=== PATIENT | female | born 1960 | race African-American/Black ===

== ENCOUNTER 2020-04-06 06:36 | Emergency (ER) | payer OTHER, MEDICAID ==
[~2020-04-06] VITALS: Ht 170.2 cm; Wt 65.8 kg
[2020-04-06 06:36] VITALS: BP_SYST 114
--- NOTE | 2020-04-06 06:36 | NUR ---
Patient kelbya from [facility] rehab to bed 6 for evaluation
--- NOTE | 2020-04-06 07:01 | NUR ---
ER Dr. Campo at bedside examining patient.
--- NOTE | 2020-04-06 07:10 | NUR ---
Patient BIB BLS from [facility] re[facility] for [facility]. Patient A&Ox2, verbal & cooperative, skin pink & flakey. Per EMS patient sent for medical clearance for [facility] admission. Pt has HX anemia, bipolar and encephalopathy.
[2020-04-06 07:26] LABS: BASOPHILS % (AUTO) 0.6 % (0.0-2.0); EOSINOPHILS # (AUTO) 0.1 K/uL (0.0-0.4); EOSINOPHILS % (AUTO) 3.2 % (0.0-4.0); HEMATOCRIT 24.5 % (36-48); HEMOGLOBIN 8.2 g/dL (12.0-16.0); LYMPHOCYTES # (AUTO) 1.3 K/uL (1.0-5.5); LYMPHOCYTES % (AUTO) 33.3 % (20.5-51.5); MEAN CORPUSCULAR HEMOGLOBIN 29 pg (27-31); MEAN CORPUSCULAR HGB CONC 33 % (32-36); MEAN CORPUSCULAR VOLUME 88 fL (79.0-98.0); MONOCYTES # (AUTO) 0.4 K/uL (0.0-1.0); MONOCYTES % (AUTO) 10.8 % (1.7-9.3); NEUTROPHILS # (AUTO) 2.1 K/uL (1.8-7.7); NEUTROPHILS % (AUTO) 52.1 % (40.0-70.0); PLATELET COUNT (AUTO) 312 K/uL (130-430); RED CELL DISTRIBUTION WIDTH 15.7 % (9.0-15.0)
[2020-04-06 07:41] LABS: CALCIUM 9.1 mg/dL (8.4-11.0); CHLORIDE 103 mmol/L (98-107); CREATININE 2.18 mg/dL (0.55-1.30); GLUCOSE 87 mg/dL (70-99); UREA NITROGEN, BLOOD 21 mg/dL (8-21)
[2020-04-06 07:45] LABS: ALANINE AMINOTRANSFERASE 16 U/L (12-78); ALBUMIN 2.9 g/dL (3.4-4.8); ALCOHOL, BLOOD 4 mg/dL (<10); ASPARTATE AMINOTRANSFERASE 21 U/L (10-37); CHOLESTEROL 159 mg/dL (<200); HDL CHOLESTEROL 93 mg/dL (>55); LDL CHOLESTEROL 48 mg/dL (<100); TOTAL BILIRUBIN 0.3 mg/dL (0.0-1.0); TRIGLYCERIDES 57 mg/dL (30-150)
[2020-04-06 07:49] LABS: ANION GAP 8 (5-15); GFR AFRICAN AMERICAN 30 mL/min (>90); SODIUM SERUM 138 mmol/L (136-145)
[2020-04-06 08:01] LABS: ACETAMINOPHEN < 1 ug/mL (1-30)
[2020-04-06 08:11] LABS: BILIRUBIN,URINE NEGATIVE (NEGATIVE); BLOOD, URINE NEGATIVE (NEGATIVE); CLARITY/URINE CLEAR (CLEAR); COLOR,URINE YELLOW (YELLOW); GLUCOSE,URINE NEGATIVE (NEGATIVE); KETONES,URINE TRACE (NEGATIVE); LEUKOCYTE ESTERASE ,URINE NEGATIVE (NEGATIVE); NITRITE, URINE NEGATIVE (NEGATIVE); PH,URINE 5.5 (5.0-8.0); PROTEIN URINE NEGATIVE (NEGATIVE); UROBILINOGEN,URINE 0.2 (0.2-1.0)
[2020-04-06 08:13] LABS: BARBITURATE, URINE NEGATIVE (NEG <=200); BENZODIAZEPINE, URINE POSITIVE (NEG <=150); CANNABINOID, URINE NEGATIVE (NEG <=50); COCAINE, URINE NEGATIVE (NEG <=150); METHAMPHETAMINES SCREEN,URINE NEGATIVE (NEG <=500); OPIATE, URINE NEGATIVE (NEG <=100); PHENCYCLIDINE SCREEN,URINE NEGATIVE (NEG <=25); UR TRICYCLIC ANTIDEPRESSANTS POSITIVE (NEG <=300); URINE AMPHETAMINE NEGATIVE (NEG <=500); URINE METHADONE NEGATIVE (NEG <=200); URINE OXYCODONE SCREEN NEGATIVE (NEG <=100); URINE PROPOXYPHENE SCREEN NEGATIVE (NEG <=300)
--- NOTE | 2020-04-06 10:27 | NUR ---
Patient given written and verbal discharge instructions and verbalizes understanding. ER MD discussed with patient the results and treatment provided. Patient in stable condition. ID arm band removed. NO Rx given. Patient educated on pain management and to follow up with PMD. Pain Scale 0/10 . Opportunity for questions provided and answered. Medication side effect fact sheet provided.
[2020-04-06 10:28] VITALS: BP_SYST 109
--- NOTE | 2020-04-06 10:29 | NUR ---
Report called to [facility], given to Chana Charge Nurse, ETA 20 MIN
== END 2020-04-06 10:29 | disposition home or self-care (01) ==
LOC: SED 06:36
DX: G81.94 Hemiplegia, unspecified affecting left nondominant side (principal); R45.6 Violent behavior; G40.909 Epilepsy, unspecified, not intractable, without status epilepticus; E11.9 Type 2 diabetes mellitus without complications; I10 Essential (primary) hypertension; F41.9 Anxiety disorder, unspecified; E78.5 Hyperlipidemia, unspecified; F20.9 Schizophrenia, unspecified; J45.909 Unspecified asthma, uncomplicated; F32.9 Major depressive disorder, single episode, unspecified; Z79.899 Other long term (current) drug therapy; Z79.82 Long term (current) use of aspirin; Z20.828 Contact with and (suspected) exposure to other viral communicable diseases
CPT/HCPCS: 36415; 80053; 80061; 80307; 81003; 83036; 83880; 84484; 85025; 87081; 87426; 93005; 99284; C9803; G0480; G0481; G0482; U0003

== ENCOUNTER 2020-04-14 18:23 | Inpatient (IN) | payer OTHER, SELFPAY ==
[~2020-04-14] VITALS: Ht 165.1 cm; Wt 63.0 kg
[2020-04-14 18:35] VITALS: BP_SYST 105
--- NOTE | 2020-04-14 18:40 | NUR ---
Patient to ER bed 7 to gown for evaluation. Side rails up. Report given to shanthi ERWIN.
--- NOTE | 2020-04-14 19:07 | NUR ---
Pt came to ER for falls/syncope/agitation pt unable to respond verablly to commands, no distress noted, pt resting in gurney comfortably, VSS.
--- NOTE | 2020-04-14 19:10 | NUR ---
ER at bedside examining patient.
[2020-04-14] MEDS ORDERED: HYDROcodone/ACETAMIN 5-325 MG TAB (NORCO/ VICODIN) PO PRN (19:15)
[2020-04-14] MEDS ORDERED: DOCUSATE SODIUM 100 MG CAPSULE PO PRN (19:15)
[2020-04-14] MEDS ORDERED: ACETAMINOPHEN 325 MG TABLET PO PRN (19:15)
[2020-04-14] MEDS ORDERED: ONDANSETRON HCL 4 MG/2 ML VIAL IVP PRN (19:15)
[2020-04-14] MEDS ORDERED: LORazepam 2 MG/ML VIAL IM ONE (19:15)
[2020-04-14] MEDS ORDERED: INSULIN LISPRO SLIDING SCALE 100 UNITS/ML VIAL (humaLOG) SUBCUT PRN (19:45)
[2020-04-14] MEDS ORDERED: LORazepam 2 MG/ML VIAL ONE (19:50)
[2020-04-14 19:57] LABS: BASOPHILS % (AUTO) 0.7 % (0.0-2.0); EOSINOPHILS # (AUTO) 0.1 K/uL (0.0-0.4); EOSINOPHILS % (AUTO) 2.1 % (0.0-4.0); HEMOGLOBIN 7.2 g/dL (12.0-16.0); LYMPHOCYTES # (AUTO) 0.9 K/uL (1.0-5.5); LYMPHOCYTES % (AUTO) 20.8 % (20.5-51.5); MEAN CORPUSCULAR HEMOGLOBIN 29 pg (27-31); MEAN CORPUSCULAR HGB CONC 33 % (32-36); MEAN CORPUSCULAR VOLUME 90 fL (79.0-98.0); MONOCYTES # (AUTO) 0.5 K/uL (0.0-1.0); MONOCYTES % (AUTO) 11.2 % (1.7-9.3); NEUTROPHILS # (AUTO) 2.9 K/uL (1.8-7.7); NEUTROPHILS % (AUTO) 65.2 % (40.0-70.0); PLATELET COUNT (AUTO) 400 K/uL (130-430); RED BLOOD CELL COUNT(AUTO) 2.45 MIL/uL (4.2-6.2); RED CELL DISTRIBUTION WIDTH 16.6 % (9.0-15.0); WHITE BLOOD COUNT (AUTO) 4.4 K/uL (4.8-10.8)
--- NOTE | 2020-04-14 20:00 | NUR ---
VSS, PT TO CT SCAN WELL TOLERATED
[2020-04-14 20:02] LABS: CALCIUM 8.8 mg/dL (8.4-11.0); CREATININE 2.37 mg/dL (0.55-1.30); POTASSIUM 4.3 mmol/L (3.5-5.1)
[2020-04-14 20:17] LABS: ALBUMIN 3.1 g/dL (3.4-4.8); FREE T4 (FREE THYROXINE) 0.9 ng/dl (0.8-1.5); PHOSPHORUS 4.1 mg/dL (2.7-4.5); THYROID STIMULATING HORMONE 0.08 uIu/mL (0.36-3.74); TOTAL BILIRUBIN 0.2 mg/dL (0.0-1.0)
[2020-04-14] MEDS ORDERED: DEXTROSE 37.5 GM GEL..GRAM. PO PRN (20:30)
--- NOTE | 2020-04-14 20:40 | NUR ---
Floor aware new lab results on Renal function and Chronically Low H/H
--- NOTE | 2020-04-14 20:43 | NUR ---
Patient will be admitted to care of Dr. García. Admitted to Tele unit. Will go to room 104. Belongings list completed. Complete and up to date summary report printed. SBAR report to be given at bedside with opportunity for questions.
--- NOTE | 2020-04-14 20:43 | NUR ---
Transfer to Tele via ACLS protocol. Licensed nurse present. IV present no signs or symptoms of infiltration.
--- NOTE | 2020-04-14 20:43 | NUR ---
ADMIT NOTE Received pt from ER to the floor with a diagnosis of syncope. Admission process initiated. patient oriented to pain management, safety and call light-teach back done.
--- NOTE | 2020-04-14 20:45 | NUR ---
ROUNDS PATIENT IN BED, SLEEPING, ARROUSABLE TO NAME, VITALS STABLE, NO SIGNS OF ANY PAIN NOTED. ADMISSION ASSESSMENT DONE AND DOCUMENTED. SEE FLOWSHEET. NEEDS ATTENDED TO. SAFETY AND SEIZURE PRECAUTIONS IN PLACED. NEEDS ATTENDED TO. CALL LIGHT PLACED WITHIN REACH.
[2020-04-14 20:50] LABS: CKMB RELATIVE INDEX 2.5 (0.0-2.9)
[2020-04-14 20:57] VITALS: BP_SYST 105
[2020-04-14] MEDS: NACL 0.9% 1,000 ML IV SCH (21:34)
[2020-04-15] VITALS: BP_SYST 122
--- NOTE | 2020-04-15 00:14 | NUR ---
PATIENT RESTING: Patient resting quietly. No acute distress noted. Vital signs within normal range.
--- NOTE | 2020-04-15 02:16 | NUR ---
ROUNDS PATIENT ASLEEP, RESPIRATIONS EVEN AND UNLABORED, WILL CONTINUE TO MONITOR.
--- NOTE | 2020-04-15 04:13 | NUR ---
ROUNDS PATIENT SLEEPING, NO SOB NOR PAIN AND DISCOMFORT NOTED, WILL CONTINUE TO MONITOR.
--- NOTE | 2020-04-15 04:47 | NUR ---
CONSULT REASON FOR CONSULT: ANEMIA PERSON I SPOKE WITH: IVET CONSULTING PHYSICIAN: DR. DA SILVA (DR. CAZARES BUSINESS SPECIALIST) SPRAY DRIER OPERATOR HELPER PHONE NUMBER: [phone] ORDERING PHYSICIAN: DR. GUTIERREZ
--- NOTE | 2020-04-15 04:49 | NUR ---
CONSULT REASON FOR CONSULT: BEHAVIORAL ISSUES PERSON I SPOKE WITH: ELSY CONSULTING PHYSICIAN: DR. MOSES SCHOOL STANDARDS COACH PHONE NUMBER: [phone] ORDERING PHYSICIAN: DR. GUTIERREZ
--- NOTE | 2020-04-15 04:51 | NUR ---
CONSULT REASON FOR CONSULT: SOLOMON PERSON I SPOKE WITH: ELSY CONSULTING PHYSICIAN: DR. CAVAZOS (DR. ROBERTSON ENTERTAINMENT PRODUCTION PROFESSIONAL) RUBBER BALL FINISHER PHONE NUMBER: [phone] ORDERING PHYSICIAN: DR. GUTIERREZ
[2020-04-15] MEDS: NACL 0.9% 1,000 ML IV SCH (06:34)
--- NOTE | 2020-04-15 06:50 | NUR ---
CLOSING NOTES PATIENT STILL SLEEPING, ACCU CHECK DONE WITH BLOOD SUGAR OF 108, NO INSULIN COVERAGE. ALL NEEDS ATTENDED TO. SAFETY MEASURES MAINTAINED. CALL LIGHT PLACED WITHIN REACH.
[2020-04-15 07:09] LABS: BASOPHILS % (AUTO) 0.4 % (0.0-2.0); EOSINOPHILS # (AUTO) 0.1 K/uL (0.0-0.4); EOSINOPHILS % (AUTO) 1.1 % (0.0-4.0); HEMATOCRIT 22.5 % (36-48); HEMOGLOBIN 7.3 g/dL (12.0-16.0); LYMPHOCYTES # (AUTO) 0.8 K/uL (1.0-5.5); LYMPHOCYTES % (AUTO) 16.3 % (20.5-51.5); MEAN CORPUSCULAR HEMOGLOBIN 30 pg (27-31); MEAN CORPUSCULAR HGB CONC 33 % (32-36); MEAN CORPUSCULAR VOLUME 91 fL (79.0-98.0); MONOCYTES # (AUTO) 0.5 K/uL (0.0-1.0); MONOCYTES % (AUTO) 10.1 % (1.7-9.3); NEUTROPHILS # (AUTO) 3.6 K/uL (1.8-7.7); NEUTROPHILS % (AUTO) 72.1 % (40.0-70.0); PLATELET COUNT (AUTO) 391 K/uL (130-430); RED BLOOD CELL COUNT(AUTO) 2.48 MIL/uL (4.2-6.2); RED CELL DISTRIBUTION WIDTH 16.6 % (9.0-15.0)
[2020-04-15 07:22] LABS: CALCIUM 8.7 mg/dL (8.4-11.0); CREATININE 1.89 mg/dL (0.55-1.30); PHOSPHORUS 4.3 mg/dL (2.7-4.5); POTASSIUM 4.4 mmol/L (3.5-5.1)
[2020-04-15] MEDS ORDERED: DRON5CAP26 PO (07:24)
[2020-04-15] MEDS ORDERED: RIFA550T5 PO (07:24)
[2020-04-15] MEDS ORDERED: LOSA100T3 PO (07:24)
[2020-04-15] MEDS ORDERED: LEVE500T53 PO (07:24)
[2020-04-15] MEDS ORDERED: DOCU-144 PO (07:24)
[2020-04-15] MEDS ORDERED: DIVA-74 PO (07:24)
[2020-04-15] MEDS ORDERED: ASPI-1393 PO (07:24)
[2020-04-15] MEDS ORDERED: AMLO10TA88 PO (07:24)
[2020-04-15 07:30] VITALS: BP_SYST 121
--- NOTE | 2020-04-15 07:50 | NUR ---
AM NOTES PT IN BED. PT IS WEARING CUSHION HELMET. AROUSABLE TO VERBAL STIMULI.VITALS STABLE . NOT IN ACUTE DISTRESS. RES EVENA ND UNLABORED. IVF INFUSING WELL. IV SITE L WRIST #22 PATENT. NO S/ SOF INFITRATION NOTED. SAFETY/ FALL /SEIZURES PRECAUTION IN PLACE. PADDED SIDE RAILS.KEPT COMFORTABLE. WILL CONTINUE WITH PLAN OF CARE.
[2020-04-15] MEDS ORDERED: ACET-2634 PO (08:43)
[2020-04-15] MEDS ORDERED: LORA-258 PO (08:43)
[2020-04-15] MEDS ORDERED: BENZ1LOZ58 PO (08:43)
[2020-04-15] MEDS ORDERED: MOM PO (08:43)
[2020-04-15] MEDS ORDERED: BENZ0.5T43 PO (08:43)
[2020-04-15] MEDS ORDERED: GUAI-1196 PO (08:43)
[2020-04-15] MEDS ORDERED: HYDR-4039 PO (08:43)
[2020-04-15] MEDS ORDERED: LAMO200T2 PO (08:43)
[2020-04-15] MEDS ORDERED: FERR-69 PO (08:43)
[2020-04-15] MEDS ORDERED: ACET325T53 PO (08:43)
[2020-04-15] MEDS ORDERED: IPRA4AER INH (08:43)
[2020-04-15] MEDS ORDERED: LIP40 PO (08:43)
[2020-04-15] MEDS ORDERED: LACT10SO6 PO (08:43)
[2020-04-15] MEDS ORDERED: QUET50TA PO (08:43)
[2020-04-15] MEDS ORDERED: TRAM100T28 PO (08:43)
--- NOTE | 2020-04-15 09:09 | NUR ---
Nutrition Update Jerome Scale 15 noted. Pt admitted for syncope. Diet: [facility] BMI: 23.1 kg/m2 RD to follow per nutrition care standards.
[2020-04-15] MEDS ORDERED: IPRATROPIUM/ALBUTEROL SULFATE 3 ML AMPUL.NEB (DUONEB) INH PRN (09:15)
[2020-04-15] MEDS ORDERED: RIFAXIMIN 550 MG TABLET PO ONE (09:15)
[2020-04-15] MEDS ORDERED: ASPIRIN 81 MG TABLET(ECOTRIN) PO ONE (09:15)
[2020-04-15] MEDS ORDERED: levETIRAcetam 500 MG TABLET PO ONE (09:15)
[2020-04-15] MEDS ORDERED: MILK OF MAGNESIA 30 ML UDC PO PRN (09:15)
[2020-04-15] MEDS ORDERED: FERROUS SULFATE 325 MG TABLET.DR PO ONE (09:15)
[2020-04-15] MEDS ORDERED: guaiFENesin/DEXTROMETHORPHAN 10 ML UDC PO PRN (09:15)
[2020-04-15] MEDS ORDERED: DIVALPROEX SODIUM 500 MG TABLET( DEPAKOTE) PO ONE (09:15)
[2020-04-15] MEDS ORDERED: LamoTRIgine 100 MG TABLET PO ONE (09:15)
[2020-04-15] MEDS ORDERED: hydrALAZINE HCL 25 MG TABLET PO ONE (09:15)
[2020-04-15] MEDS ORDERED: BENZTROPINE MESYLATE 1 MG TABLET PO ONE (09:15)
[2020-04-15] MEDS ORDERED: QUEtiapine FUMARATE 25 MG TABLET PO ONE (09:15)
[2020-04-15] MEDS ORDERED: LOSARTAN POTASSIUM 50 MG TABLET (COZAAR) PO ONE (09:15)
[2020-04-15] MEDS ORDERED: traMADol HCL HCL 50 MG TABLET (ULTRAM) PO PRN (09:15)
[2020-04-15] MEDS ORDERED: DOCUSATE SODIUM 100 MG CAPSULE PO ONE (09:15)
[2020-04-15] MEDS ORDERED: BENZOCAINE/MENTHOL 1 EACH LOZENGE PO PRN (09:15)
[2020-04-15] MEDS ORDERED: amLODIPine BESYLATE 10 MG TABLET PO ONE (09:15)
--- NOTE | 2020-04-15 09:30 | NUR ---
CONSULTATION: REASON FOR CONSULT: SEIZURE DISORDER CONSULTING PHYSICIAN: BEVERLY BROWN MD ORDERED BY: SONDRA GUTIERREZ MD SPOKE WITH [facility] [phone]
[2020-04-15] MEDS ORDERED: LACTULOSE 20 GM/30 ML UDC PO ONE (10:00)
--- NOTE | 2020-04-15 10:00 | NUR ---
meds pt is drowsy unable to give am meds. swallow eval pending . dr fontenot here notified.will continue to monitor
[2020-04-15 10:37] LABS: LACTATE DEHYDROGENASE 288 U/L (81-234); VALPROIC ACID 64 ug/mL (50-100)
[2020-04-15 10:39] LABS: C-REACTIVE PROTEIN QUANT < 0.2 mg/dL (0-0.5)
--- NOTE | 2020-04-15 11:05 | NUR ---
SWALLOW EVALUATION: LEFT MSG WITH LALA
[2020-04-15 12:00] VITALS: BP_SYST 126
--- NOTE | 2020-04-15 12:15 | NUR ---
IV INSERTION LEFT WRIST IV INFILTRATED. IVLINE REMOVED. CLEAN DRESSING APPLIED. NEW IV LINE STARTED RT HAND #22. WITH GOOD BLOOD RETURN.. FLUSHED WELL. NO S/S INFILTRATION NOTED.PT TOLERATED WELL. BLOOD SUGAR 84. NO S/S OF HYPOGLYCEMIA NOTED.VITALS STABLE NOTIN ACUTE DISTRESS. WILL CONTINUE TO MONITOR
[2020-04-15] MEDS ORDERED: D5/0.45 NS 1,000 ML IV SCH ×6 (12:25)
[2020-04-15] MEDS: D5/0.45 NS 1,000 ML IV SCH (12:39)
[2020-04-15 13:04] LABS: TOTAL IRON BIND. CAPACITY 199 ug/dL (250-450)
[2020-04-15] MEDS: LACTULOSE 20 GM/30 ML UDC PO SCH ×2 (14:57→21:32)
[2020-04-15] MEDS: QUEtiapine FUMARATE 25 MG TABLET PO SCH ×2 (14:58→21:32)
[2020-04-15] MEDS: BENZTROPINE MESYLATE 1 MG TABLET PO SCH ×2 (14:58→21:32)
[2020-04-15] MEDS: hydrALAZINE HCL 25 MG TABLET PO SCH ×2 (15:00→21:00)
--- NOTE | 2020-04-15 15:00 | NUR ---
rounds pt stable. pt is awake little restless. reassurance provided.ivf infusing well. due meds given with apple sauce. pt tolerated well. no s/s of aspiration noted. pt cleaned and repositioned. bed locked and in low position. call light within reach. will conitnue to monitor
[2020-04-15 16:16] VITALS: BP_SYST 143
[2020-04-15] MEDS: LORazepam 2 MG/ML VIAL IVP PRN (16:23)
--- NOTE | 2020-04-15 16:26 | NUR ---
AGITATION PT IS VERY AGITATED. TRYING TO GET OUT OF BED. PT STATED I WANTED TO SMOKE..ATIVAN 1 MG IVP GIVEN ORDERED. NOTIN ACUTE DISTRESS, SAFETY/ FALL /SEIZURE PRECAUTIONS IN PLACE. BED ALARM ON.IVF INFUSING WELL. WILL CONITN U TO MONITOR
--- NOTE | 2020-04-15 16:45 | NUR ---
S.T. SWALLOW EVAL SWALLOW EVAL COMPLETED. PT PRESENTS W/ FUNCTIONAL OROPHARYNGEAL SWALLOW FOR PUREE AND THIN/THICK LIQUIDS W/ NO S/S OF ASPIRATION. REFUSED FURTHER PRESENTATION. PT W/ POOR INTEREST FOR P.O. AND IS AT RISK FOR MALNUTRITION AND DEHYDRATION. REC: PUREE DIET. THIN LIQUIDS OK. MONITOR FOR ADEQUATE INTAKE. NURSE ANATOLY NOTIFIED.
--- NOTE | 2020-04-15 18:46 | NUR ---
CLOSING NOTES PT STABLE. RESTING COMFORTABLY NOTIN ACUTE DISTRESS. IVF INFUSING WELL . NO S/S OF INFILTRATION NOTED.SAFETY/FALL/SEIZURE PRECAUTIONS IN PLACE. CALL LIGHT WITHIN REACH. ALL NEEDS MET.. PT'S HELMET IS ON. WILL ENDORSE TO NIGHT NURSE
--- NOTE | 2020-04-15 19:30 | NUR ---
OPENING NOTES: Received report from dayshift nurse. Patient is laying in bed, alert when called by name but is non verbal. IV noted on left wrist with dry dressing. patient is wearing a helmet. Seizure pads noted. Patient is on room air and is not exhibiting any s/s of distress or discomfort. Ensured all safety precautions. Bed is locked and in the lowest position with alarm on, call light within reach.
[2020-04-15 20:00] VITALS: BP_SYST 127
--- NOTE | 2020-04-15 20:00 | NUR ---
LOW O2 SATURATION: I have obtained patient's vital signs and noted that her oxygen level is between 85-88% on room air. On auscultation, there is evidence of rhonchi otherwise all other vitals were WNL. I contact RT to administer PRN breathing treatment, pt tolerated well. I also placed patient on 3 L O2 via NC, tolerating well and O2 at 95%. will continue to monitor.
[2020-04-15 21:06] VITALS: BP_SYST 120
--- NOTE | 2020-04-15 21:30 | NUR ---
MEDICATION ADMINISTRATION: Patient is laying in bed and appears to be agitated. She is not able to express concerns. Patient is incontinent and is soiled. With Adele's assistance we cleansed patient and she became less agitated. I explained to patient that I would be administering medications as ordered by physicians. Meds were crushed and given with apple sauce, she tolerated well and was able to take all meds. I withheld Apresoline at this time as BP was 127/87. Will continue to monitor patient.
[2020-04-15] MEDS: FERROUS SULFATE 325 MG TABLET.DR PO SCH (21:32)
[2020-04-15] MEDS: levETIRAcetam 500 MG TABLET PO SCH (21:33)
[2020-04-15] MEDS: LamoTRIgine 100 MG TABLET PO SCH (21:33)
[2020-04-15] MEDS: RIFAXIMIN 550 MG TABLET PO SCH (21:33)
[2020-04-15] MEDS: DIVALPROEX SODIUM 500 MG TABLET( DEPAKOTE) PO SCH (21:33)
[2020-04-15] MEDS: DOCUSATE SODIUM 100 MG CAPSULE PO SCH (21:34)
[2020-04-15] MEDS: ATORVASTATIN 20 MG TABLET PO SCH (21:36)
--- NOTE | 2020-04-16 | NUR ---
RN ROUNDS: Patient is laying in bed and appears to be asleep at this time. she is not exhibiting any s/s of distress or discomfort. She continues on O2 via NC at 2L and is tolerating well. Will continue to monitor.
[2020-04-16 00:13] VITALS: BP_SYST 134
--- NOTE | 2020-04-16 01:12 | NUR ---
STRAIGHT CATH: Patient is laying in bed and is nonverbal and confused. I explained to patient that MD ordered a urine sample to be collected and explained the procedure. Patient is uncooperative therefore I had assistance for LINDA Angulo and RIP Harris. I collected 20 mL's of urine using sterile technique while performing straight cath. Patient tolerated the procedure well.
--- NOTE | 2020-04-16 03:00 | NUR ---
RN ROUNDS: Patient is laying in bed and appears to be asleep. She has no s/s of distress or discomfort. Will continue to monitor patient.
[2020-04-16] MEDS: D5/0.45 NS 1,000 ML IV SCH ×3 (04:11→23:47)
--- NOTE | 2020-04-16 05:00 | NUR ---
RN ROUNDS: Patient is laying in bed and appears to be asleep. She is not exhibiting any s/s of distress or discomfort. Bed is in the lowest position and alarm is on. Will continue to monitor patient.
--- NOTE | 2020-04-16 06:15 | NUR ---
AGITATION / ATIVAN: Patient laying in bed and has become very agitated. She is pulling on linen, seizure pads and is attempting to pull on IV. I have tried to reorient patient and calm her with no success. Ativan was administered as ordered by MD. Will continue to monitor patient.
[2020-04-16] MEDS: LORazepam 2 MG/ML VIAL IVP PRN ×5 (06:18→20:24)
--- NOTE | 2020-04-16 07:07 | NUR ---
CLOSING NOTES: Patient is laying in bed, alert when called by name but is non verbal. She pulled IV out and new IV started on RFA, patent and intact. Patient is wearing a helmet. Seizure pads are in place. No Seizure activity throughout shift. Patient is on 3L O2 via NC, tolerating well. All needs were met throughout shift. Ensured all safety precautions. Bed is locked and in the lowest position with alarm on, call light within reach. Will endorse to dayshift nurse.
[2020-04-16 07:23] LABS: ALBUMIN 2.7 g/dL (3.4-4.8); CALCIUM 8.6 mg/dL (8.4-11.0); CREATININE 1.66 mg/dL (0.55-1.30); PHOSPHORUS 3.5 mg/dL (2.7-4.5); POTASSIUM 4.4 mmol/L (3.5-5.1); TOTAL BILIRUBIN 0.2 mg/dL (0.0-1.0)
[2020-04-16 08:00] VITALS: BP_SYST 140
--- NOTE | 2020-04-16 08:00 | NUR ---
Initial notes In bed, arousable. No acute distress noted. IVF infusing well. Safety precaution observed. bed alarm on. will monitor.
[2020-04-16 08:12] LABS: BASOPHILS # (AUTO) 0.1 K/uL (0.0-0.2); BASOPHILS % (AUTO) 1.1 % (0.0-2.0); EOSINOPHILS # (AUTO) 0.1 K/uL (0.0-0.4); EOSINOPHILS % (AUTO) 2.3 % (0.0-4.0); LYMPHOCYTES % (AUTO) 20.9 % (20.5-51.5); MEAN CORPUSCULAR HEMOGLOBIN 30 pg (27-31); MEAN CORPUSCULAR HGB CONC 33 % (32-36); MEAN CORPUSCULAR VOLUME 90 fL (79.0-98.0); MONOCYTES # (AUTO) 0.6 K/uL (0.0-1.0); NEUTROPHILS # (AUTO) 3.1 K/uL (1.8-7.7); NEUTROPHILS % (AUTO) 63.7 % (40.0-70.0); PLATELET COUNT (AUTO) 381 K/uL (130-430); RED BLOOD CELL COUNT(AUTO) 2.34 MIL/uL (4.2-6.2); RED CELL DISTRIBUTION WIDTH 16.5 % (9.0-15.0); WHITE BLOOD COUNT (AUTO) 4.9 K/uL (4.8-10.8)
[2020-04-16] MEDS: LACTULOSE 20 GM/30 ML UDC PO SCH ×4 (09:00→20:56)
[2020-04-16] MEDS: RIFAXIMIN 550 MG TABLET PO SCH ×2 (09:03→20:55)
[2020-04-16] MEDS: amLODIPine BESYLATE 10 MG TABLET PO SCH (09:03)
[2020-04-16] MEDS: DIVALPROEX SODIUM 500 MG TABLET( DEPAKOTE) PO SCH ×2 (09:04→20:56)
[2020-04-16] MEDS: hydrALAZINE HCL 25 MG TABLET PO SCH ×3 (09:04→20:56)
[2020-04-16] MEDS: DOCUSATE SODIUM 100 MG CAPSULE PO SCH ×2 (09:05→20:55)
[2020-04-16] MEDS: LamoTRIgine 100 MG TABLET PO SCH ×2 (09:05→20:55)
[2020-04-16] MEDS: ASPIRIN 81 MG TABLET(ECOTRIN) PO SCH (09:05)
[2020-04-16] MEDS: FERROUS SULFATE 325 MG TABLET.DR PO SCH ×2 (09:06→20:55)
[2020-04-16] MEDS: levETIRAcetam 500 MG TABLET PO SCH ×2 (09:06→20:54)
[2020-04-16] MEDS: LOSARTAN POTASSIUM 50 MG TABLET (COZAAR) PO SCH (09:06)
[2020-04-16] MEDS: BENZTROPINE MESYLATE 1 MG TABLET PO SCH ×4 (09:07→20:55)
[2020-04-16] MEDS: QUEtiapine FUMARATE 25 MG TABLET PO SCH ×4 (09:07→20:54)
[2020-04-16] MEDS: NICOTINE 14 MG/24 HR PATCH.TD24 TD SCH (09:07)
--- NOTE | 2020-04-16 10:00 | NUR ---
Notes/med awake. wants to smoke, crush meds with apple sauce,patient took only half of her meds. refuse lactulose. dr. bear made aware
[2020-04-16 10:11] LABS: FOLATE (FOLIC ACID) 7.4 ng/mL (>3.0)
--- NOTE | 2020-04-16 10:40 | NUR ---
Notes pt is very agitated and combative, ativan given. will monitor.
--- NOTE | 2020-04-16 12:30 | NUR ---
Consent- spoke to Dr. Worley and made aware that we are unable to get consent for blood transfusion at this time. Per MD we will do it as an emergency and he will write it in his progress notes.
[2020-04-16 12:35] VITALS: BP_SYST 133
--- NOTE | 2020-04-16 13:03 | NUR ---
Consent/notes-tried to call again the patient public guardian/ legally decision maker (laura Ayala) but no answer at this time.
--- NOTE | 2020-04-16 14:01 | NUR ---
P.T. NOTES HOLD P.T. EVAL AT THIS TIME; Pt DROWSY, UNABLE TO ACTIVELY PARTICIPATE W/ P.T.; LOW Hgb; PRIOR EPISODE OF COMBATIVENESS & AGITATION; BED ALARM ON, CALL MEAD, PHONE, TABLE IN REACH. 04/16/20 Hgb=7.0
--- NOTE | 2020-04-16 15:00 | NUR ---
notes- Unable to give oral meds, patient's still drowsy from ativan. No distress noted. o2 sat is 98% in 2L. will continue to monitor.
[2020-04-16 16:32] VITALS: BP_SYST 142
--- NOTE | 2020-04-16 16:42 | NUR ---
Dietitian Recommendations * Recommend continuing NEETAO, puresiobhan diet (ONS Glucerna TID comes standard w/ this diet order; provides 660 kcal/day, 30 gm protein/day) * Encourage increase PO intakes LP, RD Please refer to Nutrition Assessment for details. Addendum: 04/16/20 at [address] Amended: Links added.
--- NOTE | 2020-04-16 17:04 | NUR ---
Notes- blood sugar is 115. Pt starting to wake up now, keeps moving in bed. bed alarm on. will continue to monitor.
--- NOTE | 2020-04-16 18:26 | NUR ---
Notes- Arousable, Blood ready per blood bank. will endorse to night nurse.
--- NOTE | 2020-04-16 19:30 | NUR ---
OPENING NOTES: Patient is laying in bed, alert when called by name but is non verbal. Seizure pads are in place. Patient is on tele. Was informed that patient needs to have 1 unit of PRBC due low hemoglobin but patient is unable to sign and Nurse was unable to contact DPOA. Will try to contact and also will page MD if unsuccessful. Ensured all safety precautions. Bed is locked and in the lowest position with alarm on, call light within reach. Will endorse to dayshift nurse.
--- NOTE | 2020-04-16 19:46 | NUR ---
CONTACT FOR CONSENT: Attempted to contact [place] Whit Mackey at [phone], [place] Brandon Ayala at [phone] and the emergency contact number at [phone] with no success regarding consent for blood transfusion. I have left a voice mail on both deputy numbers. There is no answer and I am unable to leave a message on emergency line as this is not an option, the phone rings continuously with no lemon picker or voicemail. Will notify physician.
[2020-04-16 20:00] VITALS: BP_SYST 128
--- NOTE | 2020-04-16 20:28 | NUR ---
AGITATION: Patient has a temp of 100.6, I attempted to give her Tylenol PO but she became very combative and agitated, she began kicking and trying to hit. I was able to administer Ativan as ordered for agitation and after a couple of minutes patient took Tylenol Will continue to monitor patient
[2020-04-16] MEDS: ATORVASTATIN 20 MG TABLET PO SCH (20:55)
--- NOTE | 2020-04-16 20:55 | NUR ---
Called and left messages to both Dr. García and Alex Jerez.
--- NOTE | 2020-04-16 21:30 | NUR ---
RN ROUNDS: Patient is less agitated now and appears to be asleep. I will continue to monitor patient. Bed is in the lowest position, alarm on, and call light within reach.
--- NOTE | 2020-04-16 22:24 | NUR ---
Called and left a message for Alex Jerez for the second time.
--- NOTE | 2020-04-16 22:34 | NUR ---
Called and left a message for Dr. García for the second time.
--- NOTE | 2020-04-16 22:50 | NUR ---
URINE SAMPLE: Spoke with lab and they states patient's urinalysis did not get done yesterday because they're kitchenwhere maker was down and were unable to process. They requested a new order be submitted. I have performed a straight cath using sterile technique, patient tolerated well. Urine output was 220 mL. Specimen was collected, labeled, and dropped off at lab.
[2020-04-16 23:33] LABS: BILIRUBIN,URINE NEGATIVE (NEGATIVE); BLOOD, URINE NEGATIVE (NEGATIVE); CLARITY/URINE CLEAR (CLEAR); COLOR,URINE YELLOW (YELLOW); GLUCOSE,URINE NEGATIVE (NEGATIVE); KETONES,URINE NEGATIVE (NEGATIVE); LEUKOCYTE ESTERASE ,URINE NEGATIVE (NEGATIVE); NITRITE, URINE NEGATIVE (NEGATIVE); PH,URINE 6.5 (5.0-8.0); PROTEIN URINE NEGATIVE (NEGATIVE); UROBILINOGEN,URINE 0.2 (0.2-1.0)
--- NOTE | 2020-04-16 23:39 | NUR ---
Called and left a message to Alex Jerez for the 3rd time.
--- NOTE | 2020-04-17 00:28 | NUR ---
4th time, called and left a message to Alex Jerez
--- NOTE | 2020-04-17 00:29 | NUR ---
DPOA: Attempted to contact patient's DPOA once again after not receiving a call back. There was no answer.
--- NOTE | 2020-04-17 00:35 | NUR ---
PAGED: According to report received from dayshift nurse, patient needs blood transfusion and she informed Dr. Worley that she is unable to sign. Per dayshift nurse was going to place a notation in his progress note to administer emergent blood transfusion however after reviewing notes, that notation has not been entered. We have attempted to contact Dr. Worley several times (@ 0099, [id number], [phone],and 3221) and also paged Dr. Tovar however I did not receive a call back. I am unable to give blood transfusion at this time as we are unable to receive consent from patient due to cognitive disorder, we are unable to contact DPOA, and there is no order from MD to administer as emergent. I have also made Charge nurse aware. Patient is in stable condition and I will continue to monitor.
--- NOTE | 2020-04-17 01:00 | NUR ---
RN ROUNDS: Patient is laying in bed, appears to be asleep and does not currently have a fever. Will continue to monitor patient. Bed is in the lowest position and call light within reach. Alarm is on. Patient's bed is directly in front of nursing stations where she can be monitored closely.
[2020-04-17 01:52] VITALS: BP_SYST 141
--- NOTE | 2020-04-17 03:05 | NUR ---
RN ROUNDS: Patient is laying in bed and asleep, she is not having any s/s of distress or discomfort and temperature is within normal limits at 98.8. Will continue to monitor patient.
[2020-04-17] MEDS: LORazepam 2 MG/ML VIAL IVP PRN ×3 (06:02→20:25)
[2020-04-17 07:18] LABS: CALCIUM 8.3 mg/dL (8.4-11.0); CREATININE 1.51 mg/dL (0.55-1.30); POTASSIUM 4.3 mmol/L (3.5-5.1)
--- NOTE | 2020-04-17 07:36 | NUR ---
CLOSING NOTES: Patient is laying in bed, alert to name and is very agitated this morning. She is attempting to climb out of bed. I have re-oriented patient. Seizure pads are in place. No Seizure activity throughout shift. Patient is on 2L O2 via NC, tolerating well. Blood transfusion was not able to be given as we still have not received authorization or note from MD for emergency transfusion. I will ensure to let dayshift nurse know. Patient had blood drawn this morning. All needs were met throughout shift. Ensured all safety precautions. Bed is locked and in the lowest position with alarm on, call light within reach. Will endorse to dayshift nurse.
[2020-04-17 07:46] LABS: BASOPHILS % (AUTO) 0.8 % (0.0-2.0); EOSINOPHILS # (AUTO) 0.1 K/uL (0.0-0.4); EOSINOPHILS % (AUTO) 2.8 % (0.0-4.0); HEMATOCRIT 22.3 % (36-48); HEMOGLOBIN 7.4 g/dL (12.0-16.0); MEAN CORPUSCULAR HEMOGLOBIN 30 pg (27-31); MEAN CORPUSCULAR HGB CONC 33 % (32-36); MEAN CORPUSCULAR VOLUME 90 fL (79.0-98.0); MONOCYTES # (AUTO) 0.6 K/uL (0.0-1.0); MONOCYTES % (AUTO) 13.1 % (1.7-9.3); NEUTROPHILS # (AUTO) 2.7 K/uL (1.8-7.7); NEUTROPHILS % (AUTO) 60.3 % (40.0-70.0); PLATELET COUNT (AUTO) 365 K/uL (130-430); RED BLOOD CELL COUNT(AUTO) 2.49 MIL/uL (4.2-6.2); RED CELL DISTRIBUTION WIDTH 16.8 % (9.0-15.0); WHITE BLOOD COUNT (AUTO) 4.5 K/uL (4.8-10.8)
--- NOTE | 2020-04-17 08:00 | NUR ---
initial notes rec patient awake and very confused. ivf infusing well on the r upper arm. no infiltration noted. resp easy and unlabored. no sob noted. pt close to the nurses station. bed to the lowest position and side rails up and locked. will continue to monitor patient. seen by dr bear today.
[2020-04-17] MEDS: hydrALAZINE HCL 25 MG TABLET PO SCH ×3 (08:58→20:18)
[2020-04-17] MEDS: LamoTRIgine 100 MG TABLET PO SCH ×2 (08:59→20:18)
[2020-04-17] MEDS: QUEtiapine FUMARATE 25 MG TABLET PO SCH ×3 (08:59→20:18)
[2020-04-17] MEDS: FERROUS SULFATE 325 MG TABLET.DR PO SCH ×2 (08:59→20:19)
[2020-04-17] MEDS: LACTULOSE 20 GM/30 ML UDC PO SCH ×3 (09:00→20:20)
[2020-04-17] MEDS: RIFAXIMIN 550 MG TABLET PO SCH ×2 (09:00→20:18)
[2020-04-17] MEDS: ASPIRIN 81 MG TABLET(ECOTRIN) PO SCH (09:00)
[2020-04-17] MEDS: levETIRAcetam 500 MG TABLET PO SCH ×2 (09:00→20:18)
[2020-04-17] MEDS: amLODIPine BESYLATE 10 MG TABLET PO SCH (09:01)
[2020-04-17] MEDS: BENZTROPINE MESYLATE 1 MG TABLET PO SCH ×3 (09:01→20:19)
[2020-04-17] MEDS: DOCUSATE SODIUM 100 MG CAPSULE PO SCH ×2 (09:08→20:20)
[2020-04-17] MEDS: DIVALPROEX SODIUM 500 MG TABLET( DEPAKOTE) PO SCH ×2 (09:10→20:19)
[2020-04-17] MEDS: LOSARTAN POTASSIUM 50 MG TABLET (COZAAR) PO SCH (09:10)
--- NOTE | 2020-04-17 10:00 | NUR ---
rounds seen by dr houser, dr bear and with order. continue to be confused and monitored.
--- NOTE | 2020-04-17 12:00 | NUR ---
rounds no hypo hyperglycemic reaction noted.bed to the lowest position . sleeps at intervals. call light within reached. pt close to the nurses station.
[2020-04-17 12:10] VITALS: BP_SYST 148
[2020-04-17] MEDS: NICOTINE 14 MG/24 HR PATCH.TD24 TD SCH (13:31)
[2020-04-17 16:04] VITALS: BP_SYST 146
--- NOTE | 2020-04-17 17:30 | NUR ---
rounds no hypo hyperglycemic reaction noted. call light within reached. pt close to the nurses station.
[2020-04-17] MEDS: D5/0.45 NS 1,000 ML IV SCH (17:38)
--- NOTE | 2020-04-17 18:00 | NUR ---
rounds pt drowsy at this time. no sob noted. bed to the lowest position and side rails up and locked. resting quietly at this time. call light within reached.
--- NOTE | 2020-04-17 19:30 | NUR ---
OPENING NOTES: RECEIVED CARE OF PT AND SBAR REPORT. PT IS RESTING IN BED, AAOX1 (TO PERSON), IS VERBAL BUT CONFUSED. PT IS RESTLESS AT THIS TIME. IV IS NOTED TO RIGHT FOREARM, NO S/S OF INFILTRATION NOTED TO IV SITE. BREATHING IS UNLABORED TO O2 VIA NC AT 2L. NO SOB NOTED. PT DENIES PAIN AT THIS TIME. SEIZURE PADS ARE IN PLACE. SAFETY PRECAUTIONS ARE IN PLACE: CALL LIGHT IS WITH PT, SIDE RAILS UP X3, BED IS LOCKED AND ALARMED AT THE LOWEST LEVEL, CLOSE TO NURSES STATION. WILL CONTINUE TO MONITOR.
[2020-04-17 20:00] VITALS: BP_SYST 130
[2020-04-17] MEDS: ATORVASTATIN 20 MG TABLET PO SCH (20:17)
--- NOTE | 2020-04-17 20:38 | NUR ---
MEDICATION PASS PT AGITATED AND ATTEMPTING TO GET OUT OF BED AND PULL OUT IV DESPITE REORIENTATION. ATIVAN GIVEN ORDERED PRN. SCHEDULED MEDICATIONS GIVEN CRUSHED AND MIXED WITH CHOCOLATE PUDDING. BLOOD SUGAR OF 105 NOTED, NO INSULIN COVERAGE INDICATED. SAFETY AND FALL PRECAUTIONS MAINTAINED. WILL MONITOR.
--- NOTE | 2020-04-17 22:49 | NUR ---
RN ROUNDS: PATIENT SLEEPING, NO SOB NOTED, VISIBLE SYMMETRICAL RISE AND FALL OF CHEST. NO PAIN OR DISCOMFORT NOTED, WILL CONTINUE TO MONITOR.
--- NOTE | 2020-04-17 23:44 | NUR ---
INCONTINENCE CARE PT INCONTINENT OF URINE AND BOWELS. PT CLEANED AND REPOSITIONED FOR COMFORT. PT TOLERATED WELL. SAFETY PRECAUTIONS MAINTAINED. WILL MONITOR.
[2020-04-18 00:48] VITALS: BP_SYST 158
[2020-04-18] MEDS: LORazepam 2 MG/ML VIAL IVP PRN ×4 (02:18→22:01)
--- NOTE | 2020-04-18 02:18 | NUR ---
AGITATION/ATIVAN PT AGITATED, SCREAMING OUT AND TRYING TO GET OUT OF BED. ATIVAN ADMINISTERED ORDERED PRN. PT TOLERATED WELL. NO S/S OF ACUTE DISTRESS. SAFETY PRECAUTIONS MAINTAINED. WILL MONITOR.
--- NOTE | 2020-04-18 05:30 | NUR ---
INCONTINENCE CARE PT INCONTINENT OF URINE AND BOWELS. PT CLEANED AND REPOSITIONED FOR COMFORT. PT TOLERATED WELL. SAFETY PRECAUTIONS MAINTAINED. WILL MONITOR.
[2020-04-18] MEDS: D5/0.45 NS 1,000 ML IV SCH ×2 (05:39→21:44)
[2020-04-18 07:15] LABS: CALCIUM 8.6 mg/dL (8.4-11.0); CREATININE 1.45 mg/dL (0.55-1.30)
--- NOTE | 2020-04-18 07:26 | NUR ---
CLOSING NOTES: T IS RESTING IN BED, AAOX1 (TO PERSON), IS VERBAL BUT CONFUSED. PT IS RESTLESS AT THIS TIME. IV IS NOTED TO RIGHT FOREARM, NO S/S OF INFILTRATION NOTED TO IV SITE. BREATHING IS UNLABORED TO O2 VIA NC AT 2L. NO SOB NOTED. PT DENIES PAIN AT THIS TIME. SEIZURE PADS ARE IN PLACE. SAFETY PRECAUTIONS ARE IN PLACE: CALL LIGHT IS WITH PT, SIDE RAILS UP X3, BED IS LOCKED AND ALARMED AT THE LOWEST LEVEL, CLOSE TO NURSES STATION. SEIZURE PRECAUTIONS MAINTAINED. CARE ENDORSED TO DAY SHIFT RN.
--- NOTE | 2020-04-18 07:30 | NUR ---
OPENING NOTES PT RESTING IN BED, CHEST RISE AND FALL NOTED. NONLABORED BREATHING NOTED, RECEIVING O2 AT 2LPM VIA NASAL CANNULA, TOLERATING WELL. IV LINE INTACT AND PATENT, NO SIGNS OF INFILTRATION NOTED, FLUIDS RUNNING ORDERED PER MD. NO S/S OF PAIN NOTED. NO ACUTE DISTRESS NOTED. BED LOCKED AND IN LOWEST POSITION. ALL NEEDS MET. CALL LIGHT IN REACH. FALL AND ASPIRATION PRECAUTIONS IN PLACE. CONTINUE TO MONITOR.
[2020-04-18 08:11] VITALS: BP_SYST 152
[2020-04-18 08:23] LABS: BASOPHILS # (AUTO) 0.1 K/uL (0.0-0.2); BASOPHILS % (AUTO) 1.1 % (0.0-2.0); EOSINOPHILS # (AUTO) 0.1 K/uL (0.0-0.4); EOSINOPHILS % (AUTO) 2.3 % (0.0-4.0); HEMATOCRIT 23.8 % (36-48); LYMPHOCYTES # (AUTO) 0.9 K/uL (1.0-5.5); LYMPHOCYTES % (AUTO) 16.8 % (20.5-51.5); MEAN CORPUSCULAR HEMOGLOBIN 30 pg (27-31); MEAN CORPUSCULAR HGB CONC 34 % (32-36); MEAN CORPUSCULAR VOLUME 89 fL (79.0-98.0); MONOCYTES # (AUTO) 0.7 K/uL (0.0-1.0); MONOCYTES % (AUTO) 12.3 % (1.7-9.3); NEUTROPHILS # (AUTO) 3.7 K/uL (1.8-7.7); NEUTROPHILS % (AUTO) 67.5 % (40.0-70.0); PLATELET COUNT (AUTO) 391 K/uL (130-430); RED BLOOD CELL COUNT(AUTO) 2.67 MIL/uL (4.2-6.2); RED CELL DISTRIBUTION WIDTH 16.2 % (9.0-15.0); WHITE BLOOD COUNT (AUTO) 5.5 K/uL (4.8-10.8)
--- NOTE | 2020-04-18 08:50 | NUR ---
SPOKE TO DR. BURNETT AT NURSE'S STATION, ORDERED CT NECK WITH CONTRAST. CREATININE 1.45 MD STATED OK FOR TEST. WILL CALL FOR CONSENT
[2020-04-18] MEDS: LACTULOSE 20 GM/30 ML UDC PO SCH ×5 (09:00→21:00)
[2020-04-18] MEDS: DOCUSATE SODIUM 100 MG CAPSULE PO SCH ×3 (09:00→21:42)
[2020-04-18] MEDS: RIFAXIMIN 550 MG TABLET PO SCH ×2 (09:49→21:41)
[2020-04-18] MEDS: NICOTINE 14 MG/24 HR PATCH.TD24 TD SCH (09:49)
[2020-04-18] MEDS: LamoTRIgine 100 MG TABLET PO SCH ×2 (09:49→21:41)
[2020-04-18] MEDS: BENZTROPINE MESYLATE 1 MG TABLET PO SCH ×3 (09:50→21:42)
[2020-04-18] MEDS: FERROUS SULFATE 325 MG TABLET.DR PO SCH ×2 (09:50→21:41)
[2020-04-18] MEDS: DIVALPROEX SODIUM 500 MG TABLET( DEPAKOTE) PO SCH ×2 (09:50→21:41)
[2020-04-18] MEDS: amLODIPine BESYLATE 10 MG TABLET PO SCH (09:51)
[2020-04-18] MEDS: LOSARTAN POTASSIUM 50 MG TABLET (COZAAR) PO SCH (09:51)
[2020-04-18] MEDS: hydrALAZINE HCL 25 MG TABLET PO SCH ×3 (09:51→21:43)
[2020-04-18] MEDS: ASPIRIN 81 MG TABLET(ECOTRIN) PO SCH (09:52)
[2020-04-18] MEDS: levETIRAcetam 500 MG TABLET PO SCH ×2 (09:52→21:41)
[2020-04-18] MEDS: QUEtiapine FUMARATE 25 MG TABLET PO SCH ×3 (09:52→21:40)
--- NOTE | 2020-04-18 10:10 | NUR ---
SPIT UP SOME MEDICATIONS/ RADIOLOGY ROUTINE MEDS ADMINISTERED ORDERED PER MD, EDUCATION GIVEN, PT SPIT UP HALF MEDS AND PT REFUSED TO OPEN MOUTH AGAIN. CONTINUE TO MONITOR. HASHER OPERATOR CAME IN AND STATED PT WILL HAVE A HARD TIME OBTAINING TEST SINCE PT IS AGITATED. ADMINISTERED ATIVAN ORDERED, WILL F/U.
--- NOTE | 2020-04-18 10:35 | NUR ---
SPOKE TO PATIENT'S PUBLIC GUARDIAN JAIME DAVILA FOR CONSENT FOR CT NECK WITH CONTRAST, STATED HAS TO ANSWER A QUESTIONNAIRE FOR CONSENT, STATED FAX NUMBER IS [phone], JAIME VERBALIZED UNDERSTANDING. AWAITING FAX, WILL NOTIFY .
--- NOTE | 2020-04-18 11:44 | NUR ---
ACCUCHECK DONE, NO INSULIN COVERAGE NEEDED PER SLIDING SCALE. CONTINUE TO MONITOR.
[2020-04-18 12:15] VITALS: BP_SYST 153
--- NOTE | 2020-04-18 12:15 | NUR ---
SPOKE TO DR. BURNETT REGARDING PATIENT'S CONSENT FORMS FROM PUBLIC GUARDIAN FOR CT SCAN WITH CONTRAST. AWARE. DR. BURNETT SPOKE TO GRAPPLE CREW LEADER STATING THAT PT WOULD BE UNABLE TO DO TESTING DUE TO NOT BEING ABLE TO BE STILL FOR TEST. REQUESTED TO GET POSSIBLE DIAGNOSTIC TESTS FROM [facility]. WILL F/U
--- NOTE | 2020-04-18 12:37 | NUR ---
P.T. NOTES HOLD P.T. EVAL, Pt UNABLE TO ACTIVELY PARTICIPATE, APPEARS DROWSY, UNABLE TO FF SIMPLE COMMANDS, BED ALARM ON, SIDERAIL PADS, CALL MEAD, PHONE, TABLE IN REACH, O2; NURSE IN ROOM; FF UP WHEN PARTICIPATIVE.
--- NOTE | 2020-04-18 13:30 | NUR ---
ROUNDS PT RESTING IN BED, REMOVED NASAL CANNULA, PUT NASAL CANNULA BACK ON. NO ACUTE DISTRESS NOTED. ALL NEEDS MET. CALL LIGHT IN REACH. CONTINUE TO MONITOR.
--- NOTE | 2020-04-18 14:25 | NUR ---
ROUNDS PT RESTING IN BED, CHEST RISE AND FALL NOTED. NO ACUTE DISTRESS NOTED. ALL NEEDS MET. CALL LIGHT IN REACH. CONTINUE TO MONITOR.
[2020-04-18 15:00] VITALS: BP_SYST 153
--- NOTE | 2020-04-18 15:54 | NUR ---
ROUTINE MEDS/ PRN MEDS ROUTINE MEDS ADMINISTERED ORDERED PER MD, PT SPIT UP SOME OF THE MEDS, REFUSED TO OPEN MOUTH FOR LACTULOSE. WILL NOTIFY MD. PT YELLING, ADMINISTERED PRN MEDS ORDERED PER MD, TOLERATED WELL CONTINUE TO MONITOR.
[2020-04-18 16:45] VITALS: BP_SYST 155
--- NOTE | 2020-04-18 17:31 | NUR ---
ACCUCHECK DONE, NO INSULIN COVERAGE NEEDED PER SLIDING SCALE. CONTINUE TO MONITOR.
--- NOTE | 2020-04-18 18:55 | NUR ---
CLOSING NOTES PT RESTING IN BED, CHEST RISE AND FALL NOTED, NONLABORED BREATHING NOTED, RECEIVING O2 AT 2LPM VIA NASAL CANNULA, TOLERATING WELL. IV LINE INTACT AND PATENT, NO SIGNS OF INFILTRATION NOTED, FLUIDS RUNNING ORDERED PER MD. NO ACUTE DISTRESS NOTED. BED ALARM ON. BED LOCKED AND IN LOWEST POSITION. ALL NEEDS MET. CALL LIGHT IN REACH. FALL AND ASPIRATION PRECAUTIONS IN PLACE. ENDORSED CARE TO ASHISH, RN INCLUDING MD REQUESTING DIAGNOSTIC TESTS FROM [facility] AND PT SPITTING UP SOME MEDS.
--- NOTE | 2020-04-18 19:30 | NUR ---
OPENING NOTES: RECEIVED CARE OF PT AND SBAR REPORT. PT IS RESTING IN BED, AAOX1 (TO PERSON), IS VERBAL BUT CONFUSED. PT IS RESTLESS AT THIS TIME, YELLING OUT. IV IS NOTED TO RIGHT FOREARM, NO S/S OF INFILTRATION NOTED TO IV SITE. BREATHING IS UNLABORED TO O2 VIA NC AT 2L. NO SOB NOTED. PT DENIES PAIN AT THIS TIME. SEIZURE PADS ARE IN PLACE. SAFETY PRECAUTIONS ARE IN PLACE: CALL LIGHT IS WITH PT, SIDE RAILS UP X3, BED IS LOCKED AND ALARMED AT THE LOWEST LEVEL, CLOSE TO NURSES STATION. WILL CONTINUE TO MONITOR.
[2020-04-18 20:00] VITALS: BP_SYST 152
[2020-04-18] MEDS: ATORVASTATIN 20 MG TABLET PO SCH (21:41)
--- NOTE | 2020-04-18 22:01 | NUR ---
MEDICATION PASS PT AGITATED AND ATTEMPTING TO GET OUT OF BED AND PULL OUT IV DESPITE REORIENTATION. ATIVAN GIVEN ORDERED PRN. SCHEDULED MEDICATIONS GIVEN CRUSHED AND MIXED WITH APPLESAUCE, PT COOPERATIVE WITH TAKING THE MEDICATION AT THIS TIME. BLOOD SUGAR OF 91 NOTED, NO INSULIN COVERAGE INDICATED. SAFETY AND FALL PRECAUTIONS MAINTAINED. WILL MONITOR.
--- NOTE | 2020-04-19 00:15 | NUR ---
ROUNDS PT RESTING IN BED, CHEST RISE AND FALL NOTED. NO ACUTE DISTRESS NOTED. ALL NEEDS MET. CALL LIGHT IN REACH. CONTINUE TO MONITOR.
[2020-04-19 00:33] VITALS: BP_SYST 148
--- NOTE | 2020-04-19 02:34 | NUR ---
ROUNDS PT RESTING IN BED, CHEST RISE AND FALL NOTED. NO ACUTE DISTRESS NOTED. ALL NEEDS MET. CALL LIGHT IN REACH. CONTINUE TO MONITOR.
--- NOTE | 2020-04-19 04:10 | NUR ---
RESTING: PT RESTING IN BED, CHEST RISE AND FALL NOTED. NO ACUTE DISTRESS NOTED. ALL NEEDS MET. CALL LIGHT IN REACH. CONTINUE TO MONITOR.
[2020-04-19] MEDS: LORazepam 2 MG/ML VIAL IVP PRN (06:43)
--- NOTE | 2020-04-19 06:51 | NUR ---
CLOSING NOTES: T IS RESTING IN BED, AAOX1 (TO PERSON), IS VERBAL BUT CONFUSED. PT IS RESTLESS AT THIS TIME, SCREAMING AND TRYING TO GET OUT OF BED, ATIVAN GIVEN ORDERED PRN. IV IS NOTED TO RIGHT FOREARM, NO S/S OF INFILTRATION NOTED TO IV SITE, RE-WRAPPED WITH GAUZE. BREATHING IS UNLABORED TO ROOM AIR. NO SOB NOTED. PT DENIES PAIN AT THIS TIME. SEIZURE PADS ARE IN PLACE. SAFETY PRECAUTIONS ARE IN PLACE: CALL LIGHT IS WITH PT, SIDE RAILS UP X3, BED IS LOCKED AND ALARMED AT THE LOWEST LEVEL, CLOSE TO NURSES STATION. SEIZURE PRECAUTIONS MAINTAINED. CARE WILL BE ENDORSED TO DAY SHIFT RN.
--- NOTE | 2020-04-19 07:20 | NUR ---
OPENING NOTES PT YELLING GARBLED SPEECH. NONLABORED BREATHING NOTED, RECEIVING O2 AT 2LPM VIA NASAL CANNULA, TOLERATING WELL. IV LINE INTACT AND PATENT, NO SIGNS OF INFILTRATION NOTED, FLUIDS RUNNING ORDERED PER MD. SEIZURE PADS IN PLACE. NO S/S OF PAIN OR DISTRESS NOTED. BED ALARM ON. BED LOCKED AND IN LOWEST POSITION. ALL NEEDS MET. CALL LIGHT IN REACH. FALL AND ASPIRATION PRECAUTIONS IN PLACE. CONTINUE TO MONITOR.
[2020-04-19 08:05] VITALS: BP_SYST 153
[2020-04-19] MEDS: FERROUS SULFATE 325 MG TABLET.DR PO SCH ×2 (09:02→22:08)
[2020-04-19] MEDS: amLODIPine BESYLATE 10 MG TABLET PO SCH (09:03)
[2020-04-19] MEDS: DOCUSATE SODIUM 100 MG CAPSULE PO SCH ×2 (09:03→22:12)
[2020-04-19] MEDS: hydrALAZINE HCL 25 MG TABLET PO SCH ×3 (09:03→22:06)
[2020-04-19] MEDS: DIVALPROEX SODIUM 500 MG TABLET( DEPAKOTE) PO SCH ×2 (09:03→22:12)
[2020-04-19] MEDS: BENZTROPINE MESYLATE 1 MG TABLET PO SCH ×3 (09:03→22:08)
[2020-04-19] MEDS: LACTULOSE 20 GM/30 ML UDC PO SCH ×3 (09:04→22:05)
[2020-04-19] MEDS: ASPIRIN 81 MG TABLET(ECOTRIN) PO SCH (09:04)
[2020-04-19] MEDS: NICOTINE 14 MG/24 HR PATCH.TD24 TD SCH (09:06)
[2020-04-19] MEDS: LamoTRIgine 100 MG TABLET PO SCH ×2 (09:06→22:08)
[2020-04-19] MEDS: QUEtiapine FUMARATE 25 MG TABLET PO SCH ×3 (09:07→22:07)
[2020-04-19] MEDS: RIFAXIMIN 550 MG TABLET PO SCH ×2 (09:07→22:06)
[2020-04-19] MEDS: LOSARTAN POTASSIUM 50 MG TABLET (COZAAR) PO SCH (09:07)
[2020-04-19] MEDS: levETIRAcetam 500 MG TABLET PO SCH ×2 (09:10→22:11)
--- NOTE | 2020-04-19 09:26 | NUR ---
ROUTINE MEDS ADMINISTERED ORDERED PER MD, EDUCATION GIVEN, TOLERATED WELL. PT ABLE TO TAKE ALL MEDS THIS AM. CONTINUE TO MONITOR
--- NOTE | 2020-04-19 09:58 | NUR ---
UNABLE TO OBTAIN "[facility]" RECORDS UNABLE TO OBTAIN DIAGNOSTIC TESTS MD REQUESTED FROM [facility], SPOKE TO PUBLIC GUARDIAN JAIME DAVILA, STATED THAT THERE IS NO RECORD OF PATIENT BEING SEEN AT [facility].
--- NOTE | 2020-04-19 11:23 | NUR ---
SS notes: BUSINESS INFO CONSULTANT received an order from to transfer patient to inpatient psych. BUSINESS INFO CONSULTANT informed Dora Cam RN is responding to a code. Addendum: 04/19/20 at 1226 by Winston Hay BUSINESS INFO CONSULTANT BUSINESS INFO CONSULTANT spoke with Loretta Perez from [facility]; beds are available. Clinicals faxed pending LPS hold. Dorina ERWIN informed of 5150 need. SS will follow up.
[2020-04-19 11:36] LABS: CALCIUM 8.6 mg/dL (8.4-11.0); CREATININE 1.35 mg/dL (0.55-1.30); POTASSIUM 3.9 mmol/L (3.5-5.1)
[2020-04-19] MEDS: D5/0.45 NS 1,000 ML IV SCH (11:49)
[2020-04-19 12:00] VITALS: BP_SYST 141
--- NOTE | 2020-04-19 12:03 | NUR ---
ACCUCHECK DONE, NO INSULIN COVERAGE NEEDED PER SLIDING SCALE. IV FLUIDS REPLACED AND RUNNING ORDERED, CONTINUE TO MONITOR.
--- NOTE | 2020-04-19 14:20 | NUR ---
ROUNDS PT RESTING IN BED, CHEST RISE AND FALL NOTED. NO ACUTE DISTRESS NOTED. ALL NEEDS MET. CALL LIGHT IN REACH. CONTINUE TO MONITOR.
--- NOTE | 2020-04-19 14:33 | NUR ---
Nutrition F/U RD reviewed pt's current EMR record including diet hx, MD notes, RN notes, pertinent labs/meds/procedures, care trends, and care activity Admitting Diagnosis Syncope Reviewed Pertinent Medical/Surgical Hx Medical Record Medical History Comment: PMH: lacunar stroke, epilepsy, HTN, type 2 DM, seizure disorder, BP, major depression per physician notes SARS-CoV-2 Ag (Rapid) Negative 04/14 Per MD note: pt w/ cervical neck mass per US neck Subjective Information Per MD note, pt remains confused, agitated, and has unspecified psychosis. Per bed huddle, pt planned for d/c to inpatient psych and psych to evaluate for possible 5150. Continues to have poor PO intake w/ 25% x last 8 meals and multiple refusals noted per intake record. Continues to be on CCHO, Puree diet, w/ Glucerna TID. Pt is not meeting nutritional needs at this time. Recommend continue encourage increase PO intakes during meal times. Noted pt on marinol. Current Diet Order/Nutrition Support CCHO, puree x3 days Pertinent Medications colace, seroquel. FeSO4, Keppra, marinol, lipitor, MOM, SSI, Zofran Pertinent Labs (04/19) CRE 1.35 H (trending down), (04/18) H/H 8 L/23.8 L (trending up), ALB 2.7 L Skin Integrity Comment: Jerome scale: 14; no skin issues noted per EMR Current % PO Poor: 25% x 8 meals Estimated Energy Expenditure (kcals/day) 2964-7011 kcal/day (25-30 kcal/kg CBW for maintenance) Estimated Protein Required (g/day) 50-63 gm/day (0.8-1 gm/kg CBW for maintenance) Estimated Fluid Required (l/day) 1.6-1.9 L/day (1 ml/kcal/day for maintenance) Problem/Etiology/Signs/Symptoms Inadequate nutritional intakes related to lack of appetite possibly a/w cognitive limitations as evidenced by negligible PO intake records and confusion/disorientation. *ongoing Expected Outcomes/Goals - Monitor appetite and PO intakes w/ goal of pt meeting at least 50% of estimated nutritional needs, labs trending WNL, normal GI functionm, and skin integrity/wt maintenance Dietitian Recommendations * Recommend continuing CCHO, puree diet (ONS Glucerna TID comes standard w/ this diet order; provides 660 kcal/day, 30 gm protein/day) * Encourage increase PO intakes Follow Up High Risk: F/U in 2-3days
--- NOTE | 2020-04-19 14:55 | NUR ---
Dietitian Recommendations * Recommend continuing CCHO, puree diet (ONS Glucerna TID comes standard w/ this diet order; provides 660 kcal/day, 30 gm protein/day) * Encourage increase PO intakes. Please see Nutrition F/U for details. EP,RD
--- NOTE | 2020-04-19 15:20 | NUR ---
AWARE PT NEEDS 4710 FOR D/C, PAGED DR. ALDRIDGE MULTIPLE TIMES. AWAITING CALL BACK.
--- NOTE | 2020-04-19 15:56 | NUR ---
HELD HYDRALAZINE, BP 129/88 HOLD IF BP <130. ADMINISTERED MEDS ORDERED PER MD, EDUCATION GIVEN, TOLERATED WELL. CONTINUE TO MONITOR.
[2020-04-19 16:47] VITALS: BP_SYST 133
--- NOTE | 2020-04-19 17:29 | NUR ---
P.T. NOTES P.T. EVAL COMPLETED; REFER TO EVAL FOR DETAILS; ENDORSED TO NURSING; O2 SAT ROOM AIR=94%
--- NOTE | 2020-04-19 19:00 | NUR ---
CLOSING NOTES PT RESTING IN BED, CHEST RISE AND FALL NOTED. NONLABORED BREATHING NOTED, RECEIVING O2 AT 2LPM VIA NASAL CANNULA, TOLERATING WELL. IV LINE INTACT AND PATENT, NO SIGNS OF INFILTRATION NOTED, FLUIDS RUNNING ORDERED PER MD, TOLERATING WELL. SEIZURE PADS IN PLACE ON SIDE RAILS. NO S/S OF PAIN OR DISTRESS NOTED. BED ALARM ON. BED LOCKED AND IN LOWEST POSITION. ALL NEEDS MET. CALL LIGHT IN REACH. FALL AND ASPIRATION PRECAUTIONS IN PLACE. ENDORSED CARE TO RIP WHYTE INCLUDING AWAITING [id number] ORDER FOR D/C Addendum: 04/19/20 at 1942 by Dorina Ayala RN ENDORSED CARE TO DAVID
--- NOTE | 2020-04-19 19:22 | NUR ---
NICOLE MCCAIN CALLED AND SPOKE WITH THE CHARGE NURSE AND SAID THAT THEY WERE NOT TOLD ABOUT A PT COMING TONIGHT FORM [facility]IE.SHE INFORMED ME TO CALL BACK AND SPEAK WITH MARTHA WHO IS THE CHARGE AT NIGHT AND SEE IF THEY CAN FIND THE PAPERS OTHER BRIGGS I WILL RE FAX OVER AND THEY SAID THEY WILL SEE IF THEY CAN TAKE PT TONIGHT. INFORMED CHARGE NURSE
[2020-04-19 20:10] VITALS: BP_SYST 153
--- NOTE | 2020-04-19 20:10 | NUR ---
Opening notes Pt awake, confused. No s/s distress noted. IVF infusing at ordered rate R. FA 20G clear and patent. Pt incontinent of urine. Pericare provided and repositioned. Bed low, locked, siderails upx3, alarm on. To monitor.
[2020-04-19] MEDS: ATORVASTATIN 20 MG TABLET PO SCH (22:08)
[2020-04-20] MEDS: D5/0.45 NS 1,000 ML IV SCH ×2 (00:24→15:33)
[2020-04-20 00:53] VITALS: BP_SYST 148
--- NOTE | 2020-04-20 00:55 | NUR ---
Received call from [facility] Spoke w/ Netta from [facility] and able to accept pt.
--- NOTE | 2020-04-20 01:25 | NUR ---
NICOLE MCCAIN UNABLE TO GET SOMEONE FOR CONSENT CALLED NICOLE MCCAIN AND SPOKE WITH MARTHA CHARGE NURSE AND SHE WILL HOLD BED FOR PT. SHE WILL BE GOING TO ROOM 50A WHEN CONSENT IS GIVEN. CHARGE NURSE AND RN AWARE
[2020-04-20] MEDS: LORazepam 2 MG/ML VIAL IVP PRN ×3 (04:33→17:55)
--- NOTE | 2020-04-20 04:38 | NUR ---
Ativan Pt awake, agitated and yelling. Medicated with Ativan 1mg IVP as needed. "Pt states leave me alone." Call light within reach. Bed low, locked, siderails up x3, alarm on. To monitor.
[2020-04-20 06:25] LABS: BASOPHILS % (AUTO) 0.9 % (0.0-2.0); EOSINOPHILS # (AUTO) 0.1 K/uL (0.0-0.4); HEMATOCRIT 22.2 % (36-48); HEMOGLOBIN 7.5 g/dL (12.0-16.0); LYMPHOCYTES # (AUTO) 0.9 K/uL (1.0-5.5); LYMPHOCYTES % (AUTO) 17.5 % (20.5-51.5); MEAN CORPUSCULAR HEMOGLOBIN 30 pg (27-31); MEAN CORPUSCULAR HGB CONC 34 % (32-36); MEAN CORPUSCULAR VOLUME 89 fL (79.0-98.0); MONOCYTES # (AUTO) 0.7 K/uL (0.0-1.0); MONOCYTES % (AUTO) 14.1 % (1.7-9.3); NEUTROPHILS # (AUTO) 3.2 K/uL (1.8-7.7); NEUTROPHILS % (AUTO) 64.5 % (40.0-70.0); PLATELET COUNT (AUTO) 331 K/uL (130-430); RED BLOOD CELL COUNT(AUTO) 2.51 MIL/uL (4.2-6.2); RED CELL DISTRIBUTION WIDTH 16.6 % (9.0-15.0); WHITE BLOOD COUNT (AUTO) 4.9 K/uL (4.8-10.8)
--- NOTE | 2020-04-20 06:26 | NUR ---
Closing notes Pt asleep, no s/s distress noted. O2 2L on via NC. IVF infusing at ordered rate R. FA 20G clear and patent. Blood sugar checked 110. Pt incontinent of urine. Pericare provided and repositioned. Bed low, locked, siderails upx3, alarm on. To endorse to AM nurse.
[2020-04-20 07:20] LABS: CALCIUM 8.8 mg/dL (8.4-11.0); CREATININE 1.31 mg/dL (0.55-1.30); POTASSIUM 3.7 mmol/L (3.5-5.1)
[2020-04-20 08:00] VITALS: BP_SYST 162
--- NOTE | 2020-04-20 08:00 | NUR ---
CONFUSED,RESTING WELL IN BED,VSS,ON O2 2L/NC,SAT 96%,NEEDS ATTENDED,CALL LIGHT & PERSONAL ITEMS WITHIN PT REACH,SAFETY MAINTAINED.CONTINUE TO MONITOR PT.
[2020-04-20] MEDS: LACTULOSE 20 GM/30 ML UDC PO SCH ×3 (09:00→20:43)
[2020-04-20] MEDS: LamoTRIgine 100 MG TABLET PO SCH ×2 (09:00→20:42)
[2020-04-20] MEDS: NICOTINE 14 MG/24 HR PATCH.TD24 TD SCH (09:38)
[2020-04-20] MEDS: LOSARTAN POTASSIUM 50 MG TABLET (COZAAR) PO SCH (09:39)
[2020-04-20] MEDS: QUEtiapine FUMARATE 25 MG TABLET PO SCH ×3 (09:39→20:39)
[2020-04-20] MEDS: DIVALPROEX SODIUM 500 MG TABLET( DEPAKOTE) PO SCH ×2 (09:41→20:44)
[2020-04-20] MEDS: RIFAXIMIN 550 MG TABLET PO SCH ×2 (09:41→20:38)
[2020-04-20] MEDS: hydrALAZINE HCL 25 MG TABLET PO SCH ×3 (09:42→20:40)
[2020-04-20] MEDS: DOCUSATE SODIUM 100 MG CAPSULE PO SCH ×2 (09:42→20:41)
[2020-04-20] MEDS: levETIRAcetam 500 MG TABLET PO SCH ×2 (09:43→20:41)
[2020-04-20] MEDS: amLODIPine BESYLATE 10 MG TABLET PO SCH (09:43)
[2020-04-20] MEDS: BENZTROPINE MESYLATE 1 MG TABLET PO SCH ×3 (09:44→20:44)
[2020-04-20] MEDS: ASPIRIN 81 MG TABLET(ECOTRIN) PO SCH (09:44)
[2020-04-20] MEDS: FERROUS SULFATE 325 MG TABLET.DR PO SCH ×2 (09:44→20:42)
--- NOTE | 2020-04-20 10:00 | NUR ---
PT REFUSED BREAKFAST,CONTINUE IVF INFUSION,IV SITE COVERED WITH BANDAGE ROLL.
[2020-04-20 12:00] VITALS: BP_SYST 148
--- NOTE | 2020-04-20 12:00 | NUR ---
PT YELLING,KICKING AND COMBATIVE TO STAFF,GIVE ATIVAN 1 MG IV PRN ORDER FOR ANXIETY INCONTINENT OF URINE,KEVIN CARE PROVIDED.
--- NOTE | 2020-04-20 14:12 | NUR ---
SS notes: CAREER LAW CLERK phoned pt's public guardian Brandon Ayala and left a message for a call back. CAREER LAW CLERK phoned LOLY Todd from [facility] to see if patient is LPS conserved and if conservatorship paperwork is available. Awaiting for Rita Lucy and Perez to phone back.
--- NOTE | 2020-04-20 15:00 | NUR ---
SENT COVID SWAB TO LAB FOR PENDING PSYCH FACILITY PLACEMENT.PT REFUSED PO MEDS,SAID "NO MORE".
[2020-04-20 16:00] VITALS: BP_SYST 145
--- NOTE | 2020-04-20 17:00 | NUR ---
accucheck 107 mg/dl,refused dinner,said "I don't want it."
--- NOTE | 2020-04-20 18:00 | NUR ---
pt removed IV line and stripped gown & naked,removed telmetry monitor,agitated restless and resistant to care give ativan 1 mg IV as prn order for agitationl,hourly rounds made,safety maintained.
[2020-04-20 19:50] VITALS: BP_SYST 153
--- NOTE | 2020-04-20 19:50 | NUR ---
Opening notes Pt awake, confused, agitated. No s/s distress noted. IVF infusing at ordered rate R. FA 20G clear and patent. Pt incontinent of urine. Pericare provided and repositioned. Bed low, locked, siderails upx4, alarm on. To monitor.
[2020-04-20] MEDS: ATORVASTATIN 20 MG TABLET PO SCH (20:41)
--- NOTE | 2020-04-20 20:44 | NUR ---
Refused med Pt refused med and spit it out. Pt states "I don't want it." IVF infusing at ordered rate no s/s infiltration. Safety maintained. To monitor.
[2020-04-21 00:47] VITALS: BP_SYST 148
--- NOTE | 2020-04-21 01:10 | NUR ---
Rounds Pt awake, no s/s distress noted. IVF infusing at ordered rate R. FA no s/s infiltration. Pt removed gown, new gown provided. Call light within reach. Safety maintained. Bed low, locked, siderails up x4, alarm on. To monitor.
[2020-04-21] MEDS: LORazepam 2 MG/ML VIAL IVP PRN (04:51)
--- NOTE | 2020-04-21 04:51 | NUR ---
Ativan Pt screaming and taking off clothes, no s/s distress noted. Pt medicated with Ativan 1mg IVP as needed. IVF infusing at ordered rate R. FA no s/s infiltration. Safety maintained. Bed low, locked, siderails upx 4, alarm on. To monitor.
[2020-04-21] MEDS: D5/0.45 NS 1,000 ML IV SCH (04:57)
--- NOTE | 2020-04-21 06:20 | NUR ---
Closing notes Pt asleep, no s/s distress noted. BS checked 97. IVF infusing at ordered rate R. FA 20G no s/s infiltration. Call light within reach. Bed low, locked, siderails up x4, alarm on. Safety maintained. [facility] To endorse to AM nurse.
[2020-04-21 07:03] LABS: ALBUMIN 2.7 g/dL (3.4-4.8); CALCIUM 8.8 mg/dL (8.4-11.0); CREATININE 1.27 mg/dL (0.55-1.30); PHOSPHORUS 3.1 mg/dL (2.7-4.5); POTASSIUM 3.6 mmol/L (3.5-5.1); TOTAL BILIRUBIN 0.2 mg/dL (0.0-1.0)
[2020-04-21 07:08] LABS: BASOPHILS % (AUTO) 0.7 % (0.0-2.0); EOSINOPHILS # (AUTO) 0.1 K/uL (0.0-0.4); EOSINOPHILS % (AUTO) 1.2 % (0.0-4.0); HEMATOCRIT 23.1 % (36-48); HEMOGLOBIN 7.8 g/dL (12.0-16.0); LYMPHOCYTES % (AUTO) 18.4 % (20.5-51.5); MEAN CORPUSCULAR HEMOGLOBIN 30 pg (27-31); MEAN CORPUSCULAR HGB CONC 34 % (32-36); MEAN CORPUSCULAR VOLUME 88 fL (79.0-98.0); MONOCYTES # (AUTO) 0.8 K/uL (0.0-1.0); MONOCYTES % (AUTO) 14.7 % (1.7-9.3); NEUTROPHILS # (AUTO) 3.4 K/uL (1.8-7.7); PLATELET COUNT (AUTO) 340 K/uL (130-430); RED BLOOD CELL COUNT(AUTO) 2.62 MIL/uL (4.2-6.2); RED CELL DISTRIBUTION WIDTH 16.2 % (9.0-15.0); WHITE BLOOD COUNT (AUTO) 5.3 K/uL (4.8-10.8)
--- NOTE | 2020-04-21 08:00 | NUR ---
AM ROUNDS: PATIENT LYING ON THE BED,RESTING,A0X1-2. IV FLUIDS RUNNING AT RIGHT FOREARM INTACT. CALL LIGHT WITH IN REACH. BED LOCKED AT LOWEST POSITION.CONTINUE TO MONITOR.
[2020-04-21 08:15] VITALS: BP_SYST 141
--- NOTE | 2020-04-21 08:33 | NUR ---
HIGH ALERT NOTE: Called Dr. Bird back at [phone] identified within the medical roster to verify physician authenticity.
[2020-04-21] MEDS ORDERED: D5/0.45 NS 1,000 ML IV SCH (08:45)
--- NOTE | 2020-04-21 08:46 | NUR ---
SS Note/Geropsych transfer: ROAD COMMISSIONER phoned public guardian, Brandon Richardson @ [phone]. Patient is LPS conserved; conservatorship paperwork received. Informed Mr. Richardson of patients transfer to [facility] pending bed availability and covid result. Conservatorship paperwork faxed to Loretta Perez from [facility]. ROAD COMMISSIONER spoke with [facility] charge nurse who stated they will most likely be able to accept patient; informed her of pending covid result. Mary Jane ERWIN notified. SS will follow-up.
[2020-04-21] MEDS: LACTULOSE 20 GM/30 ML UDC PO SCH (09:15)
[2020-04-21] MEDS: QUEtiapine FUMARATE 25 MG TABLET PO SCH (09:15)
[2020-04-21] MEDS: LamoTRIgine 100 MG TABLET PO SCH (09:16)
[2020-04-21] MEDS: LOSARTAN POTASSIUM 50 MG TABLET (COZAAR) PO SCH (09:17)
[2020-04-21] MEDS: amLODIPine BESYLATE 10 MG TABLET PO SCH (09:18)
[2020-04-21] MEDS: NICOTINE 14 MG/24 HR PATCH.TD24 TD SCH (09:18)
[2020-04-21] MEDS: DOCUSATE SODIUM 100 MG CAPSULE PO SCH (09:18)
[2020-04-21] MEDS: hydrALAZINE HCL 25 MG TABLET PO SCH (09:18)
[2020-04-21] MEDS: FERROUS SULFATE 325 MG TABLET.DR PO SCH (09:18)
[2020-04-21] MEDS: levETIRAcetam 500 MG TABLET PO SCH (09:18)
[2020-04-21] MEDS: BENZTROPINE MESYLATE 1 MG TABLET PO SCH (09:18)
[2020-04-21] MEDS: RIFAXIMIN 550 MG TABLET PO SCH (09:18)
[2020-04-21] MEDS: ASPIRIN 81 MG TABLET(ECOTRIN) PO SCH (09:18)
[2020-04-21] MEDS ORDERED: DIVALPROEX SODIUM 250 MG TABLET(DEPAKOTE) PO ONE (10:00)
[2020-04-21 10:13] VITALS: BP_SYST 141
--- NOTE | 2020-04-21 11:03 | NUR ---
Called Intake Nurse: Spoke with intake nurse Chris,medical information given.
[2020-04-21 12:09] VITALS: BP_SYST 140
[2020-04-21 12:12] VITALS: BP_SYST 140
--- NOTE | 2020-04-21 12:50 | NUR ---
D/C Patient Transfer packets with 5150 form given to [facility] unit #[id number]. Exit Care provided. Patient On 5150 on hold by Psyche Doctor. Patient in stable condition, ID band removed.Replaced with white band. IV catheter removed, intact and dressing applied, no active bleeding. Patient educated on pain management. All belongings sent with patient.[facility] transported [facility] to [facility] in stable condition.
[2020-04-21] MEDS ORDERED: DIVALPROEX SODIUM 250 MG TABLET(DEPAKOTE) PO SCH (21:00)
== END 2020-04-21 12:50 | DRG 73 ==
LOC: SED 18:23 → STU 19:17
PROVIDERS: ADMIT Family Medicine; ATTEND Family Medicine
DX: G90.8 Other disorders of autonomic nervous system (principal); N17.0 Acute kidney failure with tubular necrosis; E44.1 Mild protein-calorie malnutrition; I69.354 Hemiplegia and hemiparesis following cerebral infarction affecting left non-dominant side; I24.9 Acute ischemic heart disease, unspecified; Z20.828 Contact with and (suspected) exposure to other viral communicable diseases; D72.819 Decreased white blood cell count, unspecified; E11.22 Type 2 diabetes mellitus with diabetic chronic kidney disease; E11.43 Type 2 diabetes mellitus with diabetic autonomic (poly)neuropathy; E11.51 Type 2 diabetes mellitus with diabetic peripheral angiopathy without gangrene; E78.5 Hyperlipidemia, unspecified; F20.9 Schizophrenia, unspecified; F31.9 Bipolar disorder, unspecified; G40.909 Epilepsy, unspecified, not intractable, without status epilepticus; J45.909 Unspecified asthma, uncomplicated; R13.10 Dysphagia, unspecified; E05.90 Thyrotoxicosis, unspecified without thyrotoxic crisis or storm; N18.30 Chronic kidney disease, stage 3 unspecified; D63.1 Anemia in chronic kidney disease; R22.1 Localized swelling, mass and lump, neck; D50.9 Iron deficiency anemia, unspecified; M16.11 Unilateral primary osteoarthritis, right hip; M19.011 Primary osteoarthritis, right shoulder; I13.10 Hypertensive heart and chronic kidney disease without heart failure, with stage 1 through stage 4 chronic kidney disease, or unspecified chronic kidney disease; I25.10 Atherosclerotic heart disease of native coronary artery without angina pectoris; Z68.23 Body mass index [BMI] 23.0-23.9, adult; I25.2 Old myocardial infarction; Z95.5 Presence of coronary angioplasty implant and graft; Z91.19 Patient's noncompliance with other medical treatment and regimen
CPT/HCPCS: 36415; 70450-TC; 71045; 76700-TC; 80048; 80053; 80061; 80164-TC; 81003; 82140-TC; 82150-TC; 82272; 82550-TC; 82553-TC; 82607; 82728; 82746; 82962; 83010; 83036; 83540-TC; 83550-TC; 83605; 83615-TC; 83690-TC; 83735-TC; 83880; 84100-TC; 84302-TC; 84439; 84443-TC; 84484; 84560; 85025; 85044-TC; 85651-TC; 86140; 86886; 86900; 86901; 86920; 87081; 92610-GN; 93005; 93880; 96372; 99285; G0378; J2060; J7030; Q0167; U0003

== ENCOUNTER 2020-05-05 19:05 | Emergency (ER) | payer OTHER, SELFPAY ==
[~2020-05-05] VITALS: Ht 177.8 cm; Wt 73.5 kg
[~2020-05-05 19:05] MED LIST: AMLO10TA88 PO; ASPI-1393 PO; BENZ0.5T43 PO; BENZ1LOZ58 PO; DIVA-74 PO; DOCU-144 PO; DRON5CAP26 PO; FERR-69 PO; GUAI-1196 PO; HYDR-4039 PO; IPRA4AER INH; LACT10SO6 PO; LAMO200T2 PO; LEVE500T53 PO; LIP40 PO; LOSA100T3 PO; MOM PO; QUET50TA PO; RIFA550T5 PO; TRAM100T28 PO
[2020-05-05 19:17] VITALS: BP_SYST 108
[2020-05-05 20:38] LABS: BASOPHILS # (AUTO) 0.1 K/uL (0.0-0.2); BASOPHILS % (AUTO) 0.6 % (0.0-2.0); EOSINOPHILS # (AUTO) 0.2 K/uL (0.0-0.4); EOSINOPHILS % (AUTO) 1.2 % (0.0-4.0); HEMATOCRIT 28.6 % (36-48); HEMOGLOBIN 9.1 g/dL (12.0-16.0); LYMPHOCYTES # (AUTO) 1.7 K/uL (1.0-5.5); LYMPHOCYTES % (AUTO) 13.4 % (20.5-51.5); MEAN CORPUSCULAR HEMOGLOBIN 28 pg (27-31); MEAN CORPUSCULAR HGB CONC 32 % (32-36); MEAN CORPUSCULAR VOLUME 89 fL (79.0-98.0); MONOCYTES # (AUTO) 1.2 K/uL (0.0-1.0); MONOCYTES % (AUTO) 10.1 % (1.7-9.3); NEUTROPHILS # (AUTO) 9.2 K/uL (1.8-7.7); NEUTROPHILS % (AUTO) 74.7 % (40.0-70.0); PLATELET COUNT (AUTO) 436 K/uL (130-430); RED BLOOD CELL COUNT(AUTO) 3.21 MIL/uL (4.2-6.2); RED CELL DISTRIBUTION WIDTH 15.8 % (9.0-15.0); WHITE BLOOD COUNT (AUTO) 12.4 K/uL (4.8-10.8)
[2020-05-05 21:01] LABS: ANION GAP 10 (5-15); CHLORIDE 99 mmol/L (98-107); CREATININE 1.62 mg/dL (0.55-1.30); GLUCOSE 106 mg/dL (70-99); SODIUM SERUM 132 mmol/L (136-145); UREA NITROGEN, BLOOD 17 mg/dL (8-21)
[2020-05-05 21:02] LABS: GFR AFRICAN AMERICAN 42 mL/min (>90)
[2020-05-05 21:16] LABS: INFLUENZA A&B ANTIGEN SCREEN NEGATIVE FOR A & B (NEGATIVE)
[2020-05-05 21:17] LABS: ALANINE AMINOTRANSFERASE 18 U/L (12-78); ALBUMIN 2.9 g/dL (3.4-4.8); ASPARTATE AMINOTRANSFERASE 19 U/L (10-37); TOTAL BILIRUBIN 0.4 mg/dL (0.0-1.0)
[2020-05-05] MEDS ORDERED: HALOPERIDOL LACTATE 5 MG/ML VIAL IM ONE (23:00)
[2020-05-05 23:56] VITALS: BP_SYST 123
== END 2020-05-05 23:56 | disposition home or self-care (01) ==
LOC: SED 19:05
DX: R05 Cough (principal); E11.29 Type 2 diabetes mellitus with other diabetic kidney complication; N28.9 Disorder of kidney and ureter, unspecified; Z79.899 Other long term (current) drug therapy; Z79.82 Long term (current) use of aspirin; Z20.828 Contact with and (suspected) exposure to other viral communicable diseases
CPT/HCPCS: 36415; 70360-TC; 70490; 71045; 76376; 80053; 84484; 85025; 86710; 87081; 93005; 96372; 99285